=== PATIENT | male | born 1945 | race Caucasian/White ===

== ENCOUNTER 2016-10-18 13:33 | Emergency (ER) | payer MEDICARE, OTHER ==
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
--- NOTE | 2016-10-18 14:29 | XRAY Preliminary Report ---
Exam: XR Ankle 3 View RT IMPRESSION: Oblique fracture distal fibula 3 cm above the joint line without significant displacement . [facility] SITE ID: [id number]
--- NOTE | 2016-10-18 14:31 | XRAY Report ---
EXAM: RIGHT ANKLE RADIOGRAPHY EXAM DATE: 10/18/2016 02:06 PM. CLINICAL HISTORY: Fall from elevation. COMPARISON: None. TECHNIQUE: 3 views. FINDINGS: Bones: There is an oblique fracture of the distal fibula 3 cm above the joint line. No significant di splacement. Note is made of well-formed plantar and Achilles heel spurs. Joints: Normal. No effusion. No subluxations. The ankle mortise is normally aligned. Soft Tissues: Diffuse soft tissue swelling. IMPRESSION: Oblique fracture distal fibula 3 cm above the joint line without significant displacement . [facility] Referring Provider Line: [phone] SITE ID: [id number]
[2016-10-18 14:48] VITALS: BP 157/74
== END 2016-10-18 14:46 | disposition home or self-care (01) ==
LOC: ED 13:33
DX: S82.434A Nondisplaced oblique fracture of shaft of right fibula, initial encounter for closed fracture (principal); W17.89XA Other fall from one level to another, initial encounter; Y93.39 Activity, other involving climbing, rappelling and jumping off; Y92.099 Unspecified place in other non-institutional residence as the place of occurrence of the external cause; I10 Essential (primary) hypertension; I25.2 Old myocardial infarction; Z95.5 Presence of coronary angioplasty implant and graft; Z85.53 Personal history of malignant neoplasm of renal pelvis
CPT/HCPCS: 99283

== ENCOUNTER 2017-12-11 21:50 | Outpatient (CLI) | payer MEDICARE, OTHER | END 2017-12-11 21:51 | disposition critical access hospital (66) | LOC: EMS 21:50 | PROVIDERS: ATTEND Surgery | DX: R41.0 Disorientation, unspecified (principal); W19.XXXA Unspecified fall, initial encounter; Y92.009 Unspecified place in unspecified non-institutional (private) residence as the place of occurrence of the external cause | CPT/HCPCS: A0425; A0429 ==

== ENCOUNTER 2017-12-11 22:06 | Emergency (ER) | payer MEDICARE, OTHER ==
[2017-12-11 22:41] LABS: BASOPHILS % (AUTO) 0.4 %; EOSINOPHILS # (AUTO) 0.2 10^3/uL (0.0-0.7); EOSINOPHILS % (AUTO) 2.5 %; HGB - HEMOGLOBIN 14.1 g/dL (14.0-18.0); LYMPHOCYTES # (AUTO) 1.9 10^3/uL (1.5-3.5); LYMPHOCYTES % (AUTO) 25.3 %; MEAN CORPUSCULAR HEMOGLOBIN 33.1 pg (27.0-31.0); MEAN CORPUSCULAR HGB CONC 35.3 g/dL (32.0-36.0); MEAN CORPUSCULAR VOLUME 93.7 fL (80.0-94.0); MEAN PLATELET VOLUME 8.1 fL (7.4-11.4); MONOCYTES # (AUTO) 0.6 10^3/uL (0.0-1.0); MONOCYTES % (AUTO) 8.4 %; NEUTROPHILS # (AUTO) 4.8 10^3/uL (1.5-6.6); NEUTROPHILS % (AUTO) 63.4 %; PLT - PLATELET COUNT 177 10^3/uL (130-450); RED BLOOD COUNT 4.26 10^6/uL (4.70-6.10); RED CELL DISTRIBUTION WIDTH 15.1 % (12.0-15.0); WHITE BLOOD COUNT 7.6 x10^3/uL (4.8-10.8)
[2017-12-11 22:53] LABS: ALBUMIN 4.1 g/dL (3.2-5.5); ALBUMIN/GLOBULIN RATIO 1.3 (1.0-2.2); BILIRUBIN,TOTAL 0.6 mg/dL (0.2-1.0); CALCIUM 8.6 mg/dL (8.5-10.3); CREATININE 1.5 mg/dL (0.6-1.2); TOTAL PROTEIN 7.2 g/dL (6.7-8.2)
--- NOTE | 2017-12-11 23:56 | CT Report ---
Reason: fall, head abrasion Procedure Date: 12/11/2017 Accession Number: [id number] / [id number] Procedure: CT - Head W/O CPT Code: FULL RESULT: EXAM: CT HEAD EXAM DATE: 12/11/2017 10:55 PM. CLINICAL HISTORY: Fall, head abrasion. COMPARISON: None. TECHNIQUE: Multiaxial CT images were obtained from the foramen magnum to the vertex. Reformats: Coronal. IV contrast: None. In accordance with CT protocol optimization, one or more of the following dose reduction techniques were utilized for this exam: automated exposure control, adjustment of mA and/or KV based on patient size, or use of iterative reconstructive technique. FINDINGS: Parenchyma: No intraparenchymal hemorrhage. No evidence of mass, midline shift, or CT findings of infarction. Ness-white differentiation is distinct. Extraaxial Spaces: Normal for age. No subdural or epidural collections identified. Ventricles: Normal in size and position. Sinuses and Orbits: Imaged paranasal sinuses, orbits, and mastoids show no significant abnormality. Bones: No evidence of fracture or calvarial defect. Other: None. IMPRESSION: Normal head CT. [facility]
--- NOTE | 2017-12-12 00:20 | ED Physician Documentation ---
PD HPI Fall - Stated complaint Stated Complaint: GLF - Chief complaint Chief Complaint: Neuro - History obtained from History obtained from: Patient, Family - History of Present Illness Mechanism of injury: Slipped Fall distance: Sitting position Where injury occurred: Home Timing - onset: Today Injury(ies) location: Head Associated symptoms: LOC Similar symptoms before: Has not had sx before Recently seen: Not recently seen - Additional information Additional information: Patient is a 72 year old male who is presenting to the emergency department for a syncopal episode. according to patient and family, the patient was sitting at his desk working. When he went to stand up he passed out and fell forward. patient did admit to having a "few" drinks today. Upon initial evaluation in the emergency department patient denied any complaints but there was a bruise on patient's left superior forehead. Review of Systems Ten Systems: 10 systems reviewed and negative Constitutional: denies: Fever, Chills Cardiac: denies: Chest pain / pressure, Palpitations Respiratory: denies: Dyspnea GI: denies: Nausea, Vomiting Skin: reports: Abrasion (s) Musculoskeletal: denies: Neck pain, Back pain Neurologic: reports: Syncope, Head injury. denies: Headache Immunocompromised: denies: Immunocompromised PD PAST MEDICAL HISTORY - Past Medical History Cardiovascular: Hypertension, High cholesterol, [place] - Past Surgical History Past Surgical History: Yes General: Appendectomy Cardiovascular: Coronary stent - Present Medications Home Medications: Ambulatory Orders Medication Instructions Recorded Confirmed Aspirin 10/18/16 Atorvastatin [Lipitor] 10/18/16 Cetirizine [ZyrTEC] 10/18/16 Esomeprazole Magnesium [Nexium] 10/18/16 Fexofenadine HCl 10/18/16 Fluticasone [Flonase] 10/18/16 Metoprolol Tartrate 10/18/16 Primidone 10/18/16 Sildenafil Citrate [Viagra] 10/18/16 Tamsulosin [Flomax] 10/18/16 Valsartan [Diovan] 10/18/16 hydroCHLOROthiazide 10/18/16 10/18/16 [Hydrochlorothiazide] - Allergies Allergies/Adverse Reactions: Allergies Allergy/AdvReac Type Severity Reaction Status Date / Time No Known Drug Allergies Allergy Verified 12/11/17 22:14 - Social History Does the pt smoke?: No Smoking Status: Never smoker Does the pt drink ETOH?: Yes Does the pt have substance abuse?: No PD ED PE NORMAL - Vitals Vital signs reviewed: Yes - General General: Alert and oriented X 3 - HEENT HEENT: Atraumatic, Moist mucous membranes, Dentition benign - Neck Neck: No JVD - Cardiac Cardiac: RRR, No murmur - Respiratory Respiratory: No respiratory distress - Abdomen Abdomen: Soft - Extremities Extremities: No deformity - 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, No motor deficit, No sensory deficit, Normal speech Eye Opening: To Voice Motor: Obeys Commands Verbal: Oriented GCS Score: 14 PD ED PE EXPANDED - HEENT HEENT Visual: 1 - bruising Results - Vitals Vitals: Vital Signs - 24 hr 12/11/17 12/12/17 22:11 00:32 Temperature 36.1 C L 36.4 C L Heart Rate 63 66 Respiratory 20 17 Rate Blood Pressure 140/74 H 134/61 H O2 Saturation 95 96 Oxygen O2 Source Room air - EKG (time done) 2244 Rate: Rate (enter#) (48) Rhythm: Sinus bradycardia [place]: Normal Intervals: Normal DC QRS: Normal Ischemia: Normal ST segments Compare to prior EKG: Unchanged from prior EKG Computer interpretation: Agree with computer - Labs Labs: Laboratory Tests 12/11/17 12/11/17 12/11/17 22:24 22:24 22:24 WBC 7.6 RBC 4.26 L Hgb 14.1 Hct 39.9 L MCV 93.7 MCH 33.1 H MCHC 35.3 RDW 15.1 H Plt Count 177 MPV 8.1 Neut # (Auto) 4.8 Lymph # (Auto) 1.9 [place] # (Auto) 0.6 Eos # (Auto) 0.2 Baso # (Auto) 0.0 Absolute Nucleated RBC 0.00 Nucleated RBC % 0.0 Sodium 136 Potassium 3.6 Chloride 101 Carbon Dioxide 23 Anion Gap 12.0 BUN 27 H Creatinine 1.5 H Estimated GFR (MDRD) 46 L Glucose 127 H Calcium 8.6 Total Bilirubin 0.6 AST 24 ALT 32 Alkaline Phosphatase 87 Troponin I < 0.04 Total Protein 7.2 Albumin 4.1 Globulin 3.1 Albumin/Globulin Ratio 1.3 Lipase 43 Ethyl Alcohol 177.9 - Rads (name of study) ct head Radiology: Final report received (no acute intracranial pathology) PD MEDICAL DECISION MAKING - ED course Complexity details: reviewed old records, reviewed results, re-evaluated patient , considered differential, d/w patient ED course: patient was seen and examined at bedside. ekg was performed and within normal limits. patient smelled of etoh. labs were drawn and imaging was ordered. patient's ct head was within normal limits, and etoh was over 170. Patient's symptoms were likely secondary to the alcohol intoxication. patient's and friend were at bedside. patient was able to ambulate without difficulty and was stable for discharge with outpatient follow up. - Sepsis Event Vital Signs: Vital Signs - 24 hr 12/11/17 12/12/17 22:11 00:32 Temperature 36.1 C L 36.4 C L Heart Rate 63 66 Respiratory 20 17 Rate Blood Pressure 140/74 H 134/61 H O2 Saturation 95 96 Oxygen O2 Source Room air Departure - Departure Disposition: 01 Home, Self Care Clinical Impression: Fall Condition: Good Instructions: Falls Risks Prevent Comments: Your diagnostics today were within normal limits. Your symptoms were likely secondary to alcohol intoxication. You should refrain from excessive drinking. you should follow up with your doctor for further care. You can take motrin or tylenol as needed for pain. YOu should return for worsening symptoms. Discharge Date/Time: 12/12/17 00:33
[2017-12-12 00:33] VITALS: BP 134/61
== END 2017-12-12 00:33 | disposition home or self-care (01) ==
LOC: EDUNIT# → ED 22:06
DX: S00.03XA Contusion of scalp, initial encounter (principal); W07.XXXA Fall from chair, initial encounter; F10.120 Alcohol abuse with intoxication, uncomplicated; Y90.6 Blood alcohol level of 120-199 mg/100 ml; R00.1 Bradycardia, unspecified; I25.2 Old myocardial infarction; E78.00 Pure hypercholesterolemia, unspecified; I10 Essential (primary) hypertension; Z79.82 Long term (current) use of aspirin
CPT/HCPCS: 36415; 70450; 80053; 80320; 83690; 84484; 85025; 93005; 99283; 99284

== ENCOUNTER 2020-05-16 07:00 | Outpatient (CLI) | payer MEDICARE, OTHER | END 2020-05-16 23:59 | disposition home or self-care (01) | LOC: COV 07:00 | PROVIDERS: ATTEND Physician Assistant Medical | DX: Z01.812 Encounter for preprocedural laboratory examination (principal); Z20.822 Contact with and (suspected) exposure to COVID-19 ==

== ENCOUNTER 2020-07-05 17:31 | Outpatient (CLI) | payer MEDICARE, OTHER ==
--- NOTE | 2020-07-05 19:31 | Ultrasound Report ---
PROCEDURE: Duplex Ext Veins Bilateral INDICATIONS: Bilateral lower extremity pain and swelling. History of renal cell carcinoma. TECHNIQUE: Real-time imaging, as well as color and pulse Doppler interrogation, were performed of the deep veins of both legs from the inguinal ligament to the popliteal fossa. COMPARISON: None FINDINGS: The deep veins of the right and left lower extremities are normally compressible, and free of intraluminal thrombus. Color and pulse Doppler demonstrate normal phasic intravascular flow is d eviated to the right and left lower extremities.. There is normal augmentation response to distal co mpression maneuver. Complex fluid measuring 1.4 x 0.7 x 1.2 cm noted in the right popliteal fossa which could represent p opliteal cyst or hematoma/seroma. IMPRESSION: No evidence of deep vein thrombosis involving either the right and left lower extremities. Reviewed by: Kadi Montoya MD, PhD on 07/05/2020 7:30 PM PDT Approved by: Kadi Montoya MD, PhD on 07/05/2020 7:30 PM PDT Station ID: [id number]
== END 2020-07-05 17:32 | disposition home or self-care (01) ==
LOC: DI 17:31
DX: M79.671 Pain in right foot (principal); M79.89 Other specified soft tissue disorders; C64.9 Malignant neoplasm of unspecified kidney, except renal pelvis
CPT/HCPCS: 93970

== ENCOUNTER 2021-03-11 08:32 | Emergency (ER) | payer MEDICARE, OTHER ==
--- NOTE | 2021-03-11 10:49 | ED Physician Documentation ---
History of Present Illness - Stated complaint Stated Complaint: C+COUGH/ONGESTION - Chief complaint Chief Complaint: General - History obtained from History obtained from: Patient - Additonal information Additional information: 75-year-old gentleman immunized against Covid with Pfizer has been sick for 4 days with cough and congestion aches and fatigue. No shortness of breath. He has a history of kidney cancer and coronary disease. Review of Systems Ten Systems: 10 systems reviewed and negative Constitutional: reports: Fever, Chills, Myalgias, Fatigue Respiratory: reports: Cough. denies: Dyspnea PD PAST MEDICAL HISTORY - Past Medical History Cardiovascular: Hypertension, High cholesterol, [place] - Past Surgical History Past Surgical History: Yes General: Appendectomy Cardiovascular: Coronary stent - Present Medications Home Medications: Ambulatory Orders Medication Instructions Recorded Confirmed Aspirin 10/18/16 Atorvastatin [Lipitor] 10/18/16 Cetirizine [ZyrTEC] 10/18/16 Esomeprazole Magnesium [Nexium] 10/18/16 Fexofenadine HCl 10/18/16 Fluticasone [Flonase] 10/18/16 Metoprolol Tartrate 10/18/16 Primidone 10/18/16 Sildenafil Citrate [Viagra] 10/18/16 Tamsulosin [Flomax] 10/18/16 Valsartan [Diovan] 10/18/16 hydroCHLOROthiazide 10/18/16 10/18/16 [Hydrochlorothiazide] - Allergies Allergies/Adverse Reactions: Allergies Allergy/AdvReac Type Severity Reaction Status Date / Time No Known Drug Allergies Allergy Verified 03/11/21 10:06 - Social History Does the pt smoke?: No Smoking Status: Never smoker Does the pt drink ETOH?: Yes Does the pt have substance abuse?: No PD ED PE NORMAL - Vitals Vital signs reviewed: Yes - General General: Alert and oriented X 3, No acute distress - Cardiac Cardiac: RRR, No murmur - Respiratory Respiratory: No respiratory distress, Clear bilaterally - Abdomen Abdomen: Non tender - Derm Derm: No rash - Neuro Neuro: Alert and oriented X 3, Normal speech Results - Vitals Vitals: Vital Signs - 24 hr 03/11/21 03/11/21 10:07 12:10 Temperature 36.7 C Heart Rate 80 63 Respiratory 20 19 Rate Blood Pressure 137/72 H 129/76 O2 Saturation 99 97 Oxygen O2 Source Room air PD MEDICAL DECISION MAKING - ED course ED course: Mab therapy for this patient with Covid was considered and discussed with the patient. The patient was provided the handout: ``Casirivimab plus Imdevimab Fact Sheet for Patients, Parents and Caregivers, and the information within was discussed with the patient. The patient was informed of alternatives prior to receiving Mab therapy. The patient was informed that these medications are unapproved drugs that are authorized for use under Emergency Use Authorization by the FDA. The patient will be monitored for at least 1 hour after infusion is complete. Departure - Departure Disposition: 01 Home, Self Care Clinical Impression: COVID-19 Condition: Good Record reviewed to determine appropriate education?: Yes Instructions: ED Viral Syndrome Comments: Per CDC guidelines you do need to quarantine for another 10 days at least. Tylenol and/or ibuprofen as needed for aches and pains. Return if you develop shortness of breath. Ideally have a friend or family go to the pharmacy and flower buncher or picker and a pulse oximeter and return if numbers are persistently below 90 to 92%.
[2021-03-11] MEDS ORDERED: CASIRIVIMAB/IMDEVIMAB 10 ML in SODIUM CHLORIDE 0.9% 50 ML IV ONE (11:15)
[2021-03-11 13:51] VITALS: BP 133/87
== END 2021-03-11 14:05 | disposition home or self-care (01) ==
LOC: ED 08:32
DX: U07.1 COVID-19 (principal); R50.9 Fever, unspecified; R05.9 Cough, unspecified; R09.81 Nasal congestion; R53.83 Other fatigue; I10 Essential (primary) hypertension; I25.10 Atherosclerotic heart disease of native coronary artery without angina pectoris; Z95.5 Presence of coronary angioplasty implant and graft; Z85.528 Personal history of other malignant neoplasm of kidney; Z79.82 Long term (current) use of aspirin
CPT/HCPCS: 99283; 99284; J7040; M0243; Q0244

== ENCOUNTER 2023-03-07 09:06 | Emergency (ER) | payer MEDICARE, OTHER ==
[2023-03-07 10:23] LABS: ALBUMIN 3.2 g/dL (3.2-5.5); ALBUMIN/GLOBULIN RATIO 1.5 (1.0-2.2); BILIRUBIN,TOTAL 0.2 mg/dL (0.2-1.0); CALCIUM 9.1 mg/dL (8.5-10.3); CREATININE 2.2 mg/dL (0.6-1.3); MAGNESIUM 1.7 mg/dL (1.7-2.3); POTASSIUM 5.8 mmol/L (3.5-4.5); TOTAL PROTEIN 5.3 g/dL (6.4-8.9)
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
[2023-03-07] MEDS ORDERED: SODIUM BICARBONATE ABBOJECT 50 MEQ/50 ML SYRINGE IVP STA (11:38)
[2023-03-07] MEDS ORDERED: SODIUM CHLORIDE 0.9% 1,000 ML IV STA (11:38)
[2023-03-07] MEDS ORDERED: SODIUM ZIRCONIUM CYCLOSILICATE 5 GM PACKET PO STA ×2 (11:39→14:45)
[2023-03-07 14:39] LABS: CALCIUM 9.1 mg/dL (8.5-10.3); POTASSIUM 4.9 mmol/L (3.5-4.5)
[2023-03-07 15:13] VITALS: BP 131/67; O2SAT 98
== END 2023-03-07 15:18 | disposition home or self-care (01) ==
LOC: ED 09:06
DX: E87.5 Hyperkalemia (principal); N28.9 Disorder of kidney and ureter, unspecified; C64.9 Malignant neoplasm of unspecified kidney, except renal pelvis; I10 Essential (primary) hypertension; E78.00 Pure hypercholesterolemia, unspecified; Z79.82 Long term (current) use of aspirin; Z79.899 Other long term (current) drug therapy
CPT/HCPCS: 36415; 80048; 80053; 83690; 83735; 93005; 96361; 96374; 99284